=== PATIENT | male | born 1980 | race African-American/Black ===

== ENCOUNTER → 2020-07-13 | Outpatient (CLI) | payer OTHER ==
--- NOTE | 2020-07-13 18:31 | RAD ---
CT abdomen and pelvis without contrast PQRS statement: CT scans at this facility use dose reduction including either automated exposure control, iterative reconstructions, and /or weight based radiation dosing via mA and kV modification when appropriate to reduce radiation dose to as low as reasonably achievable. HISTORY: Generalized abdominal pain. Abdomen findings: Calcified granuloma right lung base. Liver, kidneys, adrenals, pancreas and spleen unremarkable. Gallbladder is small and collapse. Retrocecal appendix is negative. No obstruction or inflammatory changes in GI tract. No urinary calculi or hydronephrosis. No abdominal fluid. There is a probable 2 cm oval fatty supraumbilical ventral abdominal wall hernia sagittal image 31, axial images 43-45 obscured by motion artifact by the patient, this may have a narrow neck which is poorly defined, no herniation of bowel. Pelvis findings: No pelvic fluid. Pelvic phleboliths. No bladder calculi. Prostate, rectum and bones are unremarkable. IMPRESSION: 1. No acute process. Appendix is negative. 2. Probable 2 cm fatty supraumbilical ventral abdominal wall hernia somewhat obscured by patient motion artifact as described above. No herniation of bowel. Electronically signed by: Jacob Victor MD (07/13/2020 6:28 PM) [facility] [place]
== END ==
LOC: CT 17:55
PROVIDERS: ATTEND Preventive Medicine Occupational Medicine
DX: K42.9 Umbilical hernia without obstruction or gangrene (principal); K43.9 Ventral hernia without obstruction or gangrene
CPT/HCPCS: 74176